=== PATIENT | male | born 1985 | race Caucasian/White ===

== ENCOUNTER 2023-03-11 22:15 | Inpatient (IN) | payer MEDICAID, OTHER ==
[~2023-03-11] VITALS: Ht 172.7 cm; Wt 122.9 kg
--- NOTE | 2023-03-11 22:15 | NUR ---
BROOKE Hu FROM BUS STATION FOR C/O SOB. REC'D ALBUTEROL ON THE WAY. PLACED IN BED, AAOX4, TACHYPNEIC RR- 32 SATURATING AT 90% WITH 15LIT O2 VIA NRM. AT BEDSIDE FOR EVAL.
[2023-03-11] MEDS ORDERED: IPRATROPIUM NEB FS 0.5 MG/2.5 ML AMPUL.NEB ONE (22:27)
[2023-03-11] MEDS ORDERED: ALBUTEROL FS 2.5 MG/3 ML VIAL.NEB ONE (22:27)
--- NOTE | 2023-03-11 22:29 | NUR ---
COVID SWAB DONE AND SENT TO LAB
--- NOTE | 2023-03-11 22:29 | NUR ---
IV YAMILE G20 INSERTED ON LEFT HAND. BLOOD DRAWN AND SENT TO LAB
[2023-03-11] MEDS ORDERED: IPRATROPIUM NEB FS 0.5 MG/2.5 ML AMPUL.NEB NEB ONE (22:30)
[2023-03-11] MEDS ORDERED: ALBUTEROL FS 2.5 MG/0.5 ML VIAL.NEB NEB ONE (22:30)
[2023-03-11] MEDS ORDERED: methylPREDNISolone SOD SUCC 125 MG/2ML VIAL IV ONE ×3 (22:30→23:30)
[2023-03-11] MEDS ORDERED: EPINEPHRINE (1:1000) MDV 30 MG/30ML VIAL SUBCUT ONE (22:30)
[2023-03-11] MEDS ORDERED: EPINEPHRINE (1:1000) 1 MG/ML AMPUL ONE (22:37)
[2023-03-11] MEDS ORDERED: methylPREDNISolone SOD SUCC 125 MG/2ML VIAL ONE (22:37)
[2023-03-11] MEDS ORDERED: IOHEXOL-350 100 ML VIAL IV ONE (22:41)
[2023-03-11] MEDS ORDERED: CT SWABBABLE VALVE TRANS SET 1 EA INFUS.SET MC ONE (22:42)
[2023-03-11] MEDS ORDERED: IV NS 0.9% 250 ML IV ONE (22:42)
[2023-03-11 23:24] LABS: BASOPHILS # (AUTO) 0.1 K/uL (0.0-0.2); BASOPHILS % (AUTO) 0.8 % (0.0-2.0); EOSINOPHILS % (AUTO) 2.3 % (0.0-6.0); HEMATOCRIT 37 % (39-51); HEMOGLOBIN 11.6 g/dL (13.5-17.5); LYMPHOCYTES # (AUTO) 1.7 K/uL (0.8-4.8); MEAN CORPUSCULAR HGB CONC 32 g/dl (31.0-36.0); MEAN CORPUSCULAR VOLUME 87 fL (80-96); MONOCYTES # (AUTO) 1.2 K/uL (0.1-1.30); MONOCYTES % (AUTO) 7.6 % (2.0-12.0); NEUTROPHILS % (AUTO) 78.3 % (43.0-81.0); PLATELET COUNT (AUTO) 325 K/uL (150-450); RED BLOOD CELL COUNT(AUTO) 4.21 MIL/uL (4.5-6.0); WHITE BLOOD COUNT (AUTO) 15.4 K/uL (4.3-11.0)
[2023-03-11] MEDS ORDERED: Magnesium 1GM/D5W 100ML PREMIX 200 ML IV ONE ×2 (23:24→23:30)
[2023-03-11 23:46] LABS: ALANINE AMINOTRANSFERASE 44 U/L (12-78); ALBUMIN 3.1 g/dL (3.4-5.0); ALKALINE PHOSPHATASE 181 U/L (46-116); ASPARTATE AMINOTRANSFERASE 67 U/L (15-37); BILIRUBIN,DIRECT 0.1 mg/dL (0.0-0.2); BILIRUBIN,TOTAL 0.3 mg/dL (0.2-1.0); CARBON DIOXIDE 20 mmol/L (21-32); CHLORIDE 104 mmol/L (98-107); CREATININE 6.1 mg/dL (0.6-1.3); GLUCOSE 156 mg/dL (74-106); POTASSIUM 4.3 mmol/L (3.5-5.1); SODIUM SERUM 139 mmol/L (136-145); TOTAL PROTEIN, SERUM 8.3 g/dL (6.4-8.2); UREA NITROGEN, BLOOD 77 mg/dL (7-18)
[2023-03-12] MEDS ORDERED: VANCOMYCIN 1 GM VIAL ONE (00:22)
[2023-03-12] MEDS ORDERED: PIPERACILLIN /TAZOBACTAM 3.375 G VIAL IV ONE (00:22)
[2023-03-12] MEDS ORDERED: PIPERACILLIN /TAZOBACTAM 3.375 G in IV D5W 50 ML IV ONE (00:30)
[2023-03-12] MEDS ORDERED: VANCOMYCIN 1 GM in IV D5W 250 ML IV ONE (00:30)
[2023-03-12] MEDS ORDERED: DEXTROSE 50%-WATER 50 ML DISP.SYRIN IV PRN (01:00)
[2023-03-12] MEDS ORDERED: MAG HYDROX/AL HYDROX/SIMETH 30 ML UDC PO PRN (01:00)
[2023-03-12] MEDS ORDERED: ONDANSETRON HCL/PF 4 MG/2 ML VIAL IVP PRN (01:00)
[2023-03-12] MEDS ORDERED: Z GUARD REMEDY 4 OZ OINT TP PRN (01:00)
[2023-03-12] MEDS ORDERED: MAGNESIUM HYDROXIDE 30 ML UDC PO PRN (01:00)
[2023-03-12] MEDS ORDERED: IV NS 0.9% 1,000 ML IV PRN (01:00)
[2023-03-12] MEDS ORDERED: ACETAMINOPHEN 325 MG TABLET PO PRN (01:00)
--- NOTE | 2023-03-12 02:01 | NUR ---
REPORT GIVEN TO [place] CRAWLEY FOR CONTINUATION OF CARE.
--- NOTE | 2023-03-12 02:15 | NUR ---
PT TO [facility]IA [facility] WITH RN AND EMT.
--- NOTE | 2023-03-12 02:40 | NUR ---
FLEET DISPATCH MANAGER NOTE RECEIVED PT FROM ER VIA ETHAN, PT IS A/O X 4, ABLE TO VERBALIZE NEEDS. SPEAKS URUGUAYAN PRIMARILY. PT IS BEING ADMITTED WITH THE DX OF RESPIRATORY FAILURE. CURRENTLY ON NRB MASK @ 15 LPM, TOLERATING WELL, SATING @ 98%. NO SOB AT THIS TIME. BREATHING IS EVEN AND UNLABORED. NO S/SX OF ACUTE RESPI DISTRESS. PT DENIES PAIN. MUNICIPAL SERVICES MANAGER READs SR WITH HR IN THE 90s. IV ACCESS NOTED ON HIS L HAND, 18g, SL. SKIN IS INTACT. ALL BELONGINGS ACCOUNTED FOR. SAFETY MEASURES IN PLACE: BED LOCKED IN LOW POSITION, SR UP X 2. HOB ELEVATED. CALL LIGHT WITHIN REACH. WILL CONTINUE TO MONITOR PT.
[2023-03-12 04:00] VITALS: BP 147/95
[2023-03-12] MEDS: methylPREDNISolone SOD SUCC 40 MG/ML VIAL IV SCH ×3 (04:05→20:24)
[2023-03-12] MEDS ORDERED: IPRATROPIUM NEB FS 0.5 MG/2.5 ML AMPUL.NEB NEB SCH (06:00)
[2023-03-12] MEDS ORDERED: ALBUTEROL FS 2.5 MG/3 ML VIAL.NEB NEB SCH (06:00)
--- NOTE | 2023-03-12 06:23 | NUR ---
[facility] RN CLOSING NOTE NO SIGNIFICANT CHANGES NOTED T/O THE NIGHT. PT ON NRB MASK @ 15 LPM, TOLERATING WELL, SATING BETWEEN 97-98%. DUE MEDS GIVEN. ALL NEEDS MET. WILL ENDORSE TO AM SHIFT NURSE FOR LUZ MARINA.
[2023-03-12 08:00] VITALS: BP 171/111
[2023-03-12] MEDS: ALBUTEROL FS 2.5 MG/3 ML VIAL.NEB NEB SCH ×6 (08:00→23:56)
[2023-03-12] MEDS: IPRATROPIUM NEB FS 0.5 MG/2.5 ML AMPUL.NEB NEB SCH ×6 (08:00→23:56)
--- NOTE | 2023-03-12 08:15 | NUR ---
WEED THINNER OPENING NOTE RECEIVED PATIENT ON BED REST, AWAKE AND ORIENTED X4. O2 VIA NRM AT 10L, 02 SAT 97%, NO S/S OF RESPIRATORY DISTRESS NOTED. HOB ELEVATED TO SEMI CENTENO POSITION. THE GEM EXPERT REMOVED THE NRM AT PRESENT AND HE PUT O2 N/C AT 6L, 02 SAT NOW IS 96% TO 95%, NO SOB NOTE. PATIENT ENC. TO COUGH AND DEEP BREATH. PATIENT ON TELE SR HR 88. PATIENT IS NPO FOR NOW UNTIL SWALLOW-EVAL. IS COMPLETED. ABLE TO MOVE IN BED WITHOUT DIFFICULTY. IV ACCESS AT LEFT HAND #18G. INFUSING IVF NS AT 75ML/HR. USING URINAL WITH CLEAR YELLOW URINE. SAFETY MEASURES IN PLACE: CALL LIGHT AND BED SIDE TABLE WITHIN REACH, BED LOCKED TO THE LOWEST POSITION. WILL CONTINUE TO MONITOR
--- NOTE | 2023-03-12 09:20 | NUR ---
[facility] RN NOTE CALLED TO DR MENDEZ NOTIFIED THAT BP IS 175/110 HR 98 WITH ORDER HYDREALAZINE 10MG IV PRN WILL F\U
--- NOTE | 2023-03-12 09:30 | NUR ---
[facility] RN NOTE SWALLOW EVAL AT BEDSIDE DONE BY NURSE PASSED , NO SOB NOTED WILL INFORM TO MD ,PATIENT ALERT AWAKE ORIENTED AND FOLLOW COMMAND
[2023-03-12] MEDS: PANTOPRAZOLE 40 MG VIAL IV SCH (09:43)
[2023-03-12] MEDS: PIPERACILLIN /TAZOBACTAM 3.375 G in IV D5W 50 ML IV SCH ×4 (09:43→23:07)
[2023-03-12] MEDS: hydrALAZINE HCL IV 20 MG VIAL IV PRN ×2 (09:45→13:01)
--- NOTE | 2023-03-12 10:12 | NUR ---
[facility] RN NOTE REPORTED TO DR MENDEZ THAT FROM HOME PATIENT TAKING LOSARTAN 50 MG PO DAILY NIFEDIPINE 60 XL BID ,COREG 25 MG BID AND OK TO START SOFT DIET, PATIENT AWAKE ALERT ORIENTED , US KIDNEY DOING NOW AT BEDSIDE
[2023-03-12] MEDS ORDERED: BUMETANIDE INJ 6 MG in IV D5W 36 ML IV ONE (10:30)
[2023-03-12] MEDS ORDERED: METF-440 PO (10:54)
[2023-03-12] MEDS ORDERED: LOSA50TA39 PO (10:54)
[2023-03-12] MEDS ORDERED: ASPI-1420 PO (10:54)
[2023-03-12] MEDS ORDERED: GLIM2TAB31 PO (10:54)
[2023-03-12] MEDS ORDERED: NIFE-34 PO (10:54)
[2023-03-12] MEDS ORDERED: CHOL100043 PO (10:54)
[2023-03-12] MEDS ORDERED: CARV25TA2 PO (10:54)
[2023-03-12] MEDS ORDERED: ATOR40TA PO (10:54)
--- NOTE | 2023-03-12 11:00 | NUR ---
[place] CRAWLEY NOTE STILL BO172/109 REYZAAR 50 MG PO GIVEN WILL F\U Addendum: 03/12/23 at 1211 by FEDERICA ALFARO RN BP 172/109
[2023-03-12] MEDS: HEPARIN SODIUM, PORCINE 5000 UNITS/1 ML VIAL SQ SCH ×2 (11:06→16:18)
[2023-03-12] MEDS: LOSARTAN POTASSIUM 50 MG TABLET PO SCH (11:11)
[2023-03-12] MEDS: BLOOD SUGAR DIAGNOSTIC 1 EACH STRIP VI SCH ×4 (11:30→21:21)
[2023-03-12] MEDS: INSULIN REGULAR, HUMAN 100 UNIT/ML 3 ML VIAL SQ PRN ×3 (11:32→21:22)
[2023-03-12 12:00] VITALS: BP 175/109
--- NOTE | 2023-03-12 12:53 | NUR ---
EMPLOYMENT ADJUDICATOR NOTE REPORTED TO DR VANESSA Valenzeula THAT BP 177/115 AND NEXT DOSE OF HYDRALAZINE AT 2 PM,ORDERED NEXT DOSE OF HYDRALAZINE GIVE NOW, WILL F\U
--- NOTE | 2023-03-12 14:26 | NUR ---
telephone plant power operator note called t dr da silva that bp after hydralazine is 170/107 hr 105 ordered clonidine 0.1 po q8 hour prn, order carried out
[2023-03-12] MEDS: CLONIDINE HCL 0.1 MG TABLET PO PRN ×3 (14:46→20:47)
--- NOTE | 2023-03-12 14:47 | NUR ---
telecom assistant note clonidine 0.1 mg po given as ordered bp170/107 will f\u
[2023-03-12 14:54] LABS: CREATININE, URINE 63.2 MG/DL (30.0-125.0)
[2023-03-12 14:57] LABS: BILIRUBIN,URINE NEGATIVE (NEGATIVE); LEUKOCYTE ESTERASE ,URINE NEGATIVE (NEGATIVE); NITRITE, URINE NEGATIVE (NEGATIVE); PH,URINE 5.5 (5.0-8.0); PROTEIN,URINE 3+ mg/dl (NEGATIVE); UGLUCOSE TRACE mg/dL (NEGATIVE); UROBILINOGEN,URINE 0.2 EU/dL (0.2)
--- NOTE | 2023-03-12 15:12 | NUR ---
telegraphic typewriter repairer note ua collected as ordered keep clean dry will chase
[2023-03-12 15:14] LABS: COLOR,URINE LIGHT YELLOW (YELLOW); RBC,URINE 0-2 /HPF (0-2)
[2023-03-12 15:15] LABS: BACTERIA,URINE Few /HPF (None Seen); SQUAMOUS EPITHELIAL CELL,UR Few /HPF (None Seen); URIC ACID CRYSTALS,URINE Moderate /HPF (None Seen); URINE AMORPHOUS URATE Moderate /HPF (None Seen); WBC,URINE NONE SEEN /HPF (0-3)
[2023-03-12 16:00] VITALS: BP_SYST 167; BP_SYST 170; BP_DIAS 101; BP_DIAS 107
[2023-03-12] MEDS: NIFEdipine XL (30MG) 30 MG TAB PO SCH (16:12)
[2023-03-12] MEDS: CARVEDILOL 12.5 MG TABLET PO SCH (16:56)
--- NOTE | 2023-03-12 17:45 | NUR ---
telemarketing agent note called to dr da silva notified that bp174/103 despite Coreg 25mg and Procardia 60mg po given stated ok to give clonidine 0.1 mg dose now and change Catapres 0.2 mg prn will f\u
--- NOTE | 2023-03-12 17:47 | NUR ---
EXTERIOR DOOR INSTALLER NOTE CLONIDINE 0.1 MG PO GIVEN ORDERED BY DR MENDEZ BP174/103 WILL F\U
--- NOTE | 2023-03-12 18:21 | NUR ---
TELE EMBEDDED LINUX DEVELOPER CLOSING NOTE PATIENT SITTING IN BED, A/OX4, O2 N/C 4L O2 SAT 97% NO S/S OF RESPIRATORY DISTRESS NOTED. PATIENT ATE 100% OF DINNER. VOIDING LARGE AMOUNT CLEAR YELLOW URINE. IV ACCESS ON RIGHT HAND #20G SL NO S/S OF INFILTRATION NOTED. IV ACCESS TO LEFT HAND #18G WITHOUT S/S OF INFILTRATION NOTED. SAFETY MEASURES IN PLACE: CALL LIGHT, TABLE, URINAL WITHIN REACH. SIDE RAILS UP X2, BED LOCKED TO THE LOWEST POSITION. WILL ENDORSE TO THE NEXT SHIFT. Addendum: 03/12/23 at 1859 by FEDERICA ALFARO RN ON 4L NC ,SATURATION IS 96% NO SOB NOTED
--- NOTE | 2023-03-12 19:30 | NUR ---
[facility] RN OPENING NOTE RECEIVED PT IN BED, AWAKE, A/O X 4, ABLE TO VERBALIZE NEEDS. SPEAKS GEORGIAN PRIMARILY. CURRENTLY ON NC @ 4 LPM, TOLERATING WELL, SATING @ >95%. NO S/SX OF ACUTE RESPI DISTRESS NOTED AT THIS TIME. NO SOB. BREATHING IS EVEN AND UNLABORED. SUPERVISOR KENNEL READS SR WITH HR IN THE 90s. IV ACCESS NOTED ON HIS L HAND, 18g, AND R HAND, # 20g, BOTH PATENT, INTACT AND SL. ALL SAFETY MEASURES IN PLACE: BED LOCKED IN LOW POSITION, SR UP X 2. HOB ELEVATED. CALL LIGHT WITHIN REACH. WILL CONTINUE TO MONITOR PT.
[2023-03-12 20:00] VITALS: BP 166/110
[2023-03-13] VITALS: BP 164/116
[2023-03-13] MEDS: IPRATROPIUM NEB FS 0.5 MG/2.5 ML AMPUL.NEB NEB SCH ×6 (03:27→23:34)
[2023-03-13] MEDS: ALBUTEROL FS 2.5 MG/3 ML VIAL.NEB NEB SCH ×6 (03:27→23:34)
[2023-03-13 04:00] VITALS: BP 153/101
[2023-03-13] MEDS: methylPREDNISolone SOD SUCC 40 MG/ML VIAL IV SCH ×3 (04:33→21:19)
[2023-03-13] MEDS: PIPERACILLIN /TAZOBACTAM 3.375 G in IV D5W 50 ML IV SCH ×4 (05:03→23:23)
[2023-03-13 06:49] LABS: HEMATOCRIT 32 % (39-51); HEMOGLOBIN 10.5 g/dL (13.5-17.5); LYMPHOCYTES # (AUTO) 0.6 K/uL (0.8-4.8); MEAN CORPUSCULAR HGB CONC 33 g/dl (31.0-36.0); MEAN CORPUSCULAR VOLUME 87 fL (80-96); MONOCYTES # (AUTO) 0.6 K/uL (0.1-1.30); MONOCYTES % (AUTO) 3.7 % (2.0-12.0); NEUTROPHILS # (AUTO) 14.1 K/uL (1.8-8.9); NEUTROPHILS % (AUTO) 92.3 % (43.0-81.0); PLATELET COUNT (AUTO) 261 K/uL (150-450); RED BLOOD CELL COUNT(AUTO) 3.71 MIL/uL (4.5-6.0); WHITE BLOOD COUNT (AUTO) 15.3 K/uL (4.3-11.0)
--- NOTE | 2023-03-13 07:05 | NUR ---
RN CLOSING NOTE NO SIGNIFICANT CHANGE T/O THE NIGHT. ALL DUE MEDS GIVEN. NEEDS MET. WILL ENDORSE TO AM SHIFT NURSE FOR LUZ MARINA.
[2023-03-13] MEDS: BLOOD SUGAR DIAGNOSTIC 1 EACH STRIP VI SCH ×4 (07:09→21:41)
[2023-03-13 07:14] LABS: CALCIUM, SERUM 8.5 mg/dL (8.5-10.1); CREATININE 4.9 mg/dL (0.6-1.3); MAGNESIUM 2.3 mg/dL (1.8-2.4); PHOSPHORUS 6.4 mg/dL (2.5-4.9); POTASSIUM 4.3 mmol/L (3.5-5.1)
--- NOTE | 2023-03-13 07:15 | NUR ---
[facility] RN OPENING NOTE RECEIVED PT IN BED, AWAKE, A/O X 4, ABLE TO VERBALIZE NEEDS. SPEAKS MAURITIAN PRIMARILY. CURRENTLY ON NC @ 4 LPM, TOLERATING WELL, SATING @ >95%. NO S/SX OF ACUTE RESPI DISTRESS NOTED AT THIS TIME. NO SOB. BREATHING IS EVEN AND UNLABORED. PILOT PLANT OPERATOR READS SR WITH HR IN THE 90s. IV ACCESS NOTED ON HIS L HAND, 18g, AND R HAND, # 20g, BOTH PATENT, INTACT AND SL. ALL SAFETY MEASURES IN PLACE: BED LOCKED IN LOW POSITION, SR UP X 2. HOB ELEVATED. CALL LIGHT WITHIN REACH. WILL CONTINUE TO MONITOR PT.
[2023-03-13] MEDS: INSULIN REGULAR, HUMAN 100 UNIT/ML 3 ML VIAL SQ PRN ×3 (07:20→16:51)
[2023-03-13 08:00] VITALS: BP 151/103
[2023-03-13] MEDS ORDERED: LOSARTAN POTASSIUM 50 MG TABLET PO SCH (09:00)
[2023-03-13] MEDS: CARVEDILOL 12.5 MG TABLET PO SCH ×2 (09:09→16:41)
[2023-03-13] MEDS: LOSARTAN POTASSIUM 50 MG TABLET PO SCH (09:09)
[2023-03-13] MEDS: BUMETANIDE INJ 0.25 MG/ML VIAL IV SCH (09:10)
[2023-03-13] MEDS: PANTOPRAZOLE 40 MG VIAL IV SCH (09:10)
[2023-03-13] MEDS: NIFEdipine XL (30MG) 30 MG TAB PO SCH ×2 (09:10→16:41)
[2023-03-13] MEDS: HEPARIN SODIUM, PORCINE 5000 UNITS/1 ML VIAL SQ SCH ×2 (09:11→16:42)
[2023-03-13 12:00] VITALS: BP 157/95
[2023-03-13] MEDS ORDERED: VANCOMYCIN 1 GM in IV D5W 250 ML IV SCH (13:00)
[2023-03-13] MEDS ORDERED: BUMETANIDE INJ 4 MG in IV D5W 24 ML IV ONE (13:30)
[2023-03-13 16:13] VITALS: BP 153/106
--- NOTE | 2023-03-13 18:26 | NUR ---
RN CLOSING NOTE PT IN BED, AWAKE, A/O X 4, ABLE TO VERBALIZE NEEDS. SPEAKS MAURITIAN PRIMARILY. CURRENTLY ON ROOM AIR SATURATION 94% TOLERATING WELL. NO S/SX OF ACUTE RESPI DISTRESS NOTED AT THIS TIME. NO SOB. BREATHING IS EVEN AND UNLABORED. MARITIME GUARD READS SR WITH HR IN THE 90s. IV ACCESS NOTED ON HIS L HAND, 18g, AND R HAND, # 20g, BOTH PATENT, INTACT AND SL. ALL SAFETY MEASURES IN PLACE: BED LOCKED IN LOW POSITION, SR UP X 2. HOB ELEVATED. CALL LIGHT WITHIN REACH. WILL ENDORSE RAGS LABORER NURSE TO FALLOW POC
--- NOTE | 2023-03-13 19:30 | NUR ---
BAND SAW MARKER OPENING NOTE RECEIVED PT IN BED, AWAKE, A/O X 4, ABLE TO VERBALIZE NEEDS. SPEAKS TRISTANIAN PRIMARILY. CURRENTLY ON RA, TOLERATING WELL, SATING @ >95%. NO S/SX OF ACUTE RESPI DISTRESS NOTED AT THIS TIME. NO SOB. BREATHING IS EVEN AND UNLABORED. SINK CUTTER READS SR WITH HR IN THE 80s. IV ACCESS NOTED ON HIS L HAND, 18g, AND R HAND, # 20g, BOTH PATENT, INTACT AND SL. ALL SAFETY MEASURES IN PLACE: BED LOCKED IN LOW POSITION, SR UP X 2. HOB ELEVATED. CALL LIGHT WITHIN REACH. WILL CONTINUE TO MONITOR PT.
[2023-03-13 20:00] VITALS: BP 186/107
[2023-03-13] MEDS: CLONIDINE HCL 0.1 MG TABLET PO PRN (20:17)
[2023-03-13] MEDS: *INSULIN REGULAR(HUMULIN R)HUM 100 UNIT/ML VIAL SQ PRN (21:43)
[2023-03-14] VITALS: BP 163/109
[2023-03-14] MEDS ORDERED: VANCOMYCIN 1 GM in IV D5W 250 ML IV SCH (01:00)
[2023-03-14] MEDS: ALBUTEROL FS 2.5 MG/3 ML VIAL.NEB NEB SCH ×3 (03:30→11:22)
[2023-03-14] MEDS: IPRATROPIUM NEB FS 0.5 MG/2.5 ML AMPUL.NEB NEB SCH ×3 (03:30→11:22)
[2023-03-14 04:00] VITALS: BP 164/100
[2023-03-14] MEDS: PIPERACILLIN /TAZOBACTAM 3.375 G in IV D5W 50 ML IV SCH ×2 (04:20→05:03)
[2023-03-14] MEDS: methylPREDNISolone SOD SUCC 40 MG/ML VIAL IV SCH (04:24)
[2023-03-14] MEDS: hydrALAZINE HCL IV 20 MG VIAL IV PRN ×2 (04:28→11:37)
--- NOTE | 2023-03-14 06:16 | NUR ---
VEGETABLE CUTTER CLOSING NOTE NO SIGNIFICANT CHANGE T/O THE NIGHT. PT'S SBP STILL >160. PT RECEIVED CLONIDINE AND HYDRALAZINE PRN ORDERED. ALL DUE MEDS GIVEN. NEEDS MET. WILL ENDORSE TO AM SHIFT NURSE FOR LUZ MARINA.
[2023-03-14 07:01] LABS: HEMATOCRIT 36 % (39-51); HEMOGLOBIN 11.5 g/dL (13.5-17.5); LYMPHOCYTES # (AUTO) 0.5 K/uL (0.8-4.8); LYMPHOCYTES % (AUTO) 3.2 % (20.0-44.0); MEAN CORPUSCULAR HGB CONC 32 g/dl (31.0-36.0); MEAN CORPUSCULAR VOLUME 89 fL (80-96); MONOCYTES # (AUTO) 0.3 K/uL (0.1-1.30); NEUTROPHILS # (AUTO) 15.2 K/uL (1.8-8.9); NEUTROPHILS % (AUTO) 94.8 % (43.0-81.0); PLATELET COUNT (AUTO) 268 K/uL (150-450); RED BLOOD CELL COUNT(AUTO) 4.01 MIL/uL (4.5-6.0)
[2023-03-14 07:15] LABS: CALCIUM, SERUM 8.6 mg/dL (8.5-10.1); MAGNESIUM 2.5 mg/dL (1.8-2.4); PHOSPHORUS 5.8 mg/dL (2.5-4.9); POTASSIUM 4.3 mmol/L (3.5-5.1)
[2023-03-14] MEDS: BLOOD SUGAR DIAGNOSTIC 1 EACH STRIP VI SCH ×2 (07:26→11:31)
[2023-03-14] MEDS ORDERED: PANTOPRAZOLE 40 MG TABLET.DR PO SCH (07:30)
[2023-03-14] MEDS: *INSULIN REGULAR(HUMULIN R)HUM 100 UNIT/ML VIAL SQ PRN (07:46)
--- NOTE | 2023-03-14 07:57 | NUR ---
QUALITY LEAD OPENING NOTE RECEIVED PT IN BED, AWAKE, A/O X 4, ABLE TO VERBALIZE NEEDS. SPEAKS DJIBOUTIAN PRIMARILY. CURRENTLY ON RA, TOLERATING WELL, SATING @ >95%. NO COMPLAINTS OF PAIN OR DISCOMFORT NOTED AT THIS TIME. BREATHING IS EVEN AND UNLABORED.PT ON TELE MONTIOR. IV ACCESS NOTED ON HIS L HAND, 18g, AND R HAND, # 20g, BOTH PATENT, INTACT AND SL. ALL SAFETY MEASURES IN PLACE: BED LOCKED IN LOW POSITION, SR UP X 2. HOB ELEVATED. CALL LIGHT WITHIN REACH. BED ALARM ON
[2023-03-14 08:00] VITALS: BP 151/104
[2023-03-14] MEDS: BUMETANIDE INJ 0.25 MG/ML VIAL IV SCH (08:15)
[2023-03-14] MEDS: NIFEdipine XL (30MG) 30 MG TAB PO SCH (08:15)
[2023-03-14] MEDS: LOSARTAN POTASSIUM 50 MG TABLET PO SCH (08:15)
[2023-03-14] MEDS: CARVEDILOL 12.5 MG TABLET PO SCH (08:16)
[2023-03-14] MEDS: HEPARIN SODIUM, PORCINE 5000 UNITS/1 ML VIAL SQ SCH (08:19)
[2023-03-14] MEDS ORDERED: NIFEdipine XL (30MG) 30 MG TAB PO SCH (09:00)
--- NOTE | 2023-03-14 11:13 | NUR ---
RN NOTE GAVE 2 TABLET PROCARDIA 60 MG SCHEDULED. DISCONTINUED IT AND PUT IN NEW ORDER F0R 90 MG 3 TABLETS BID. NOTIFIED PHARMACY.PICKED UP 1 PROCARDIA 30 MG TABLET FROM PHARMACY AND ADMINSTERED. ADMINSTERED TOTAL OF 90 MG PER MD ORDER
[2023-03-14] MEDS: INSULIN REGULAR, HUMAN 100 UNIT/ML 3 ML VIAL SQ PRN (11:52)
[2023-03-14 12:00] VITALS: BP 157/102
[2023-03-14] MEDS ORDERED: ZOSYN IVPB 2.25 G in IV D5W 50ml IV SCH (12:00)
[2023-03-14] MEDS ORDERED: methylPREDNISolone SOD SUCC 40 MG/ML VIAL IV SCH (12:00)
--- NOTE | 2023-03-14 14:51 | NUR ---
RN AMA DISCHARGE NOTE PT LEFT IN STABLE CONDITION. PT ALERT AND ORIENTED X 4. PROVIDED EDUCATION ON BENEFITS OF STAYING. PT REFUSED AND INSISTENT ON GOING HOME. REMOVED 2 IV AND TELE MONTIOR. PT SAID HE WOULD CONTROL HIS BLOOD PRESSURE AT HOME. EDUCATED ON BENEFITS OF TAKING BP MEDICATIONS PRESCRIBED. PT VERBALIZED UNDERSTANDING OF RISK AND AGREED.EDUCATED IN CASE OF EMERGENCY TO GO TO NEAREST EMERGENECY. PT VERBALIZED UNDERSTANDING. ALL BELONGINGS WITH PT. AWARE, SERVICER TRAVEL TRAILERS AWARE.ESCORTED OUT BY NURSING STAFF.
== END 2023-03-14 14:50 | disposition left against medical advice (07) | DRG 720 ==
LOC: ER 22:17 → TELE1 03-12 01:16 → TELE-TD 03-12 02:11 → TELE1 03-12 11:38
PROVIDERS: ADMIT Student in an Organized Health Care Education/Training Program; ATTEND Student in an Organized Health Care Education/Training Program
DX: A41.9 Sepsis, unspecified organism (principal); J96.01 Acute respiratory failure with hypoxia; N17.0 Acute kidney failure with tubular necrosis; I50.31 Acute diastolic (congestive) heart failure; E11.22 Type 2 diabetes mellitus with diabetic chronic kidney disease; E44.1 Mild protein-calorie malnutrition; J18.9 Pneumonia, unspecified organism; I13.0 Hypertensive heart and chronic kidney disease with heart failure and stage 1 through stage 4 chronic kidney disease, or unspecified chronic kidney disease; D64.9 Anemia, unspecified; I50.33 Acute on chronic diastolic (congestive) heart failure; E11.9 Type 2 diabetes mellitus without complications; E78.5 Hyperlipidemia, unspecified; N18.9 Chronic kidney disease, unspecified; Z79.899 Other long term (current) drug therapy; Z20.822 Contact with and (suspected) exposure to COVID-19; Z53.29 Procedure and treatment not carried out because of patient's decision for other reasons
CPT/HCPCS: 36415; 71045-TC; 76770-TC; 80048-TC; 80076-TC; 81001; 82570-TC; 82962-TC; 83605-TC; 83735-TC; 83880; 84100-TC; 84300-TC; 84484-TC; 85025-TC; 85730-TC; 87040-TC; 87081-TC; 92526; 92611-TC; 93307-TC; 94762-TC; 94799-TC; A4223; C9113; C9803; G0378; J0171; J0360; J1644; J1815; J2543; J2920; J2930; J3370; J3475; J3490; J7030; J7050; J7060; Q9967

== ENCOUNTER 2023-10-28 10:54 | Inpatient (IN) | payer MEDICAID ==
[~2023-10-28] VITALS: Ht 170.2 cm; Wt 92.5 kg
[~2023-10-28 10:54] MED LIST: ASPI-1169 NG; ASPI-1420 PO; ATOR40TA PO; CARV25TA2 PO; CHOL100043 PO; GLIM2TAB31 PO; HYDR-4076 GT; LABE100T15 PO; LIDO30AD10 TP; LOSA50TA39 PO; METF-440 PO; NIFE-34 PO
[2023-10-28 12:05] LABS: BASOPHILS # (AUTO) 0.1 K/uL (0.0-0.2); BASOPHILS % (AUTO) 0.8 % (0.0-2.0); EOSINOPHILS # (AUTO) 0.3 K/uL (0.0-0.7); EOSINOPHILS % (AUTO) 3.7 % (0.0-6.0); HEMATOCRIT 42 % (39-51); HEMOGLOBIN 14.2 g/dL (13.5-17.5); LYMPHOCYTES # (AUTO) 1.1 K/uL (0.8-4.8); LYMPHOCYTES % (AUTO) 14.7 % (20.0-44.0); MEAN CORPUSCULAR HEMOGLOBIN 31 PG (26.0-33.0); MEAN CORPUSCULAR HGB CONC 34 g/dl (31.0-36.0); MEAN CORPUSCULAR VOLUME 93 fL (80-96); MONOCYTES # (AUTO) 0.5 K/uL (0.1-1.30); MONOCYTES % (AUTO) 6.9 % (2.0-12.0); NEUTROPHILS # (AUTO) 5.8 K/uL (1.8-8.9); NEUTROPHILS % (AUTO) 73.9 % (43.0-81.0); PLATELET COUNT (AUTO) 349 K/uL (150-450); RED CELL DISTRIBUTION WIDTH 15.5 % (11.5-15.0); WHITE BLOOD COUNT (AUTO) 7.8 K/uL (4.3-11.0)
[2023-10-28 12:15] LABS: CALCIUM, SERUM 9.9 mg/dL (8.5-10.1); POTASSIUM 4.3 mmol/L (3.5-5.1)
[2023-10-28 12:16] LABS: CREATININE 11.6 mg/dL (0.6-1.3)
[2023-10-28 12:30] LABS: INR 1.03 (0.91-1.10); PROTHROMBIN TIME 10.9 SECS (9.2-11.1)
[2023-10-28] MEDS ORDERED: Z GUARD REMEDY 4 OZ OINT TP PRN (13:00)
[2023-10-28] MEDS ORDERED: MAG HYDROX/AL HYDROX/SIMETH 30 ML UDC PO PRN (13:00)
[2023-10-28] MEDS ORDERED: ONDANSETRON HCL/PF 4 MG/2 ML VIAL IVP PRN (13:00)
[2023-10-28] MEDS ORDERED: ZOLPIDEM TARTRATE 5 MG TABLET PO PRN (13:00)
[2023-10-28] MEDS ORDERED: MAGNESIUM HYDROXIDE 30 ML UDC PO PRN (13:00)
[2023-10-28] MEDS ORDERED: ACETAMINOPHEN 325 MG TABLET PO PRN (13:00)
[2023-10-28] MEDS ORDERED: DEXTROSE 50%-WATER 50 ML DISP.SYRIN IV PRN (13:00)
[2023-10-28 14:35] VITALS: BP 147/111; TEMP 98.1
[2023-10-28 16:00] VITALS: BP 155/111; TEMP 98; O2SAT 100
[2023-10-28] MEDS: NIFEDIPINE XL 60 MG TAB.ER.24 PO SCH (17:37)
[2023-10-28] MEDS: CARVEDILOL 12.5 MG TABLET PO SCH (17:37)
[2023-10-28] MEDS: ATORVASTATIN 40 MG TABLET PO SCH (17:38)
[2023-10-28] MEDS: BLOOD SUGAR DIAGNOSTIC 1 EACH STRIP IN SCH ×2 (17:39→22:07)
[2023-10-28] MEDS: LOSARTAN POTASSIUM 50 MG TABLET PO SCH (17:39)
[2023-10-28 20:00] VITALS: BP 154/116; TEMP 98; O2SAT 100
[2023-10-29] VITALS (9 sets, daily range): BP systolic 108–129; BP diastolic 72–88; TEMP 97.2–98.4; O2SAT 96–100
[2023-10-29 03:56] LABS: CALCIUM, SERUM 9.5 mg/dL (8.5-10.1); POTASSIUM 4.1 mmol/L (3.5-5.1)
[2023-10-29] MEDS: BLOOD SUGAR DIAGNOSTIC 1 EACH STRIP IN SCH ×4 (06:21→22:00)
[2023-10-29 06:22] LABS: BASOPHILS # (AUTO) 0.1 K/uL (0.0-0.2); BASOPHILS % (AUTO) 0.8 % (0.0-2.0); EOSINOPHILS # (AUTO) 0.4 K/uL (0.0-0.7); HEMATOCRIT 37 % (39-51); HEMOGLOBIN 12.7 g/dL (13.5-17.5); LYMPHOCYTES # (AUTO) 1.8 K/uL (0.8-4.8); LYMPHOCYTES % (AUTO) 19.5 % (20.0-44.0); MEAN CORPUSCULAR HEMOGLOBIN 32 PG (26.0-33.0); MEAN CORPUSCULAR HGB CONC 34 g/dl (31.0-36.0); MEAN CORPUSCULAR VOLUME 93 fL (80-96); MONOCYTES # (AUTO) 0.9 K/uL (0.1-1.30); MONOCYTES % (AUTO) 9.5 % (2.0-12.0); NEUTROPHILS # (AUTO) 6.2 K/uL (1.8-8.9); NEUTROPHILS % (AUTO) 66.2 % (43.0-81.0); PLATELET COUNT (AUTO) 321 K/uL (150-450); RED BLOOD CELL COUNT(AUTO) 3.99 MIL/uL (4.5-6.0); RED CELL DISTRIBUTION WIDTH 15.4 % (11.5-15.0); WHITE BLOOD COUNT (AUTO) 9.3 K/uL (4.3-11.0)
[2023-10-29] MEDS ORDERED: ACETAMINOPHEN ES 500 MG TABLET PO ONE (06:30)
[2023-10-29 06:47] LABS: CALCIUM, SERUM 9.5 mg/dL (8.5-10.1); MAGNESIUM 2.2 mg/dL (1.8-2.4); POTASSIUM 4.7 mmol/L (3.5-5.1)
[2023-10-29] MEDS ORDERED: LIDOCAINE HCL/MPF 1% 30 ML VIAL IJ ONE (06:50)
[2023-10-29] MEDS ORDERED: IOHEXOL 0 ML IV ONE (06:50)
[2023-10-29] MEDS ORDERED: HEPARIN SODIUM, PORCINE 1,000 UNIT/ML VIAL ONE (06:51)
[2023-10-29 06:56] LABS: CREATININE 15.9 mg/dL (0.6-1.3); PHOSPHORUS 9.9 mg/dL (2.5-4.9)
[2023-10-29] MEDS ORDERED: FENTANYL PF 100MCG/2ML AMPUL ONE (07:22)
[2023-10-29] MEDS ORDERED: MIDAZOLAM HCL 2 MG/2ML VIAL ONE (07:22)
[2023-10-29] MEDS ORDERED: BACITRACIN ZINC OINT PACKET 1 EA PACKET TP ONE (07:44)
[2023-10-29] MEDS ORDERED: PANTOPRAZOLE 40 MG VIAL IV SCH (09:00)
[2023-10-29] MEDS: CHOLECALCIFEROL 1,000 UNIT TABLET (VIT D3) PO SCH (09:46)
[2023-10-29] MEDS: CARVEDILOL 12.5 MG TABLET PO SCH ×2 (09:47→17:00)
[2023-10-29] MEDS: LOSARTAN POTASSIUM 50 MG TABLET PO SCH ×2 (09:47→17:00)
[2023-10-29] MEDS: NIFEDIPINE XL 60 MG TAB.ER.24 PO SCH ×2 (09:47→17:00)
[2023-10-29] MEDS ORDERED: ANCEF 1 GM/50 ML D5W IV SCH ×2 (16:00)
[2023-10-29] MEDS: ATORVASTATIN 40 MG TABLET PO SCH (17:12)
[2023-10-29] MEDS: INSULIN REGULAR, HUMAN 100 UNIT/ML 3 ML VIAL SQ PRN (18:04)
[2023-10-30 05:51] LABS: BASOPHILS # (AUTO) 0.1 K/uL (0.0-0.2); BASOPHILS % (AUTO) 0.8 % (0.0-2.0); EOSINOPHILS # (AUTO) 0.5 K/uL (0.0-0.7); HEMATOCRIT 36 % (39-51); HEMOGLOBIN 12.2 g/dL (13.5-17.5); LYMPHOCYTES # (AUTO) 1.6 K/uL (0.8-4.8); LYMPHOCYTES % (AUTO) 18.8 % (20.0-44.0); MEAN CORPUSCULAR HEMOGLOBIN 32 PG (26.0-33.0); MEAN CORPUSCULAR HGB CONC 34 g/dl (31.0-36.0); MEAN CORPUSCULAR VOLUME 94 fL (80-96); MONOCYTES % (AUTO) 11.4 % (2.0-12.0); NEUTROPHILS # (AUTO) 5.2 K/uL (1.8-8.9); PLATELET COUNT (AUTO) 267 K/uL (150-450); RED BLOOD CELL COUNT(AUTO) 3.86 MIL/uL (4.5-6.0); WHITE BLOOD COUNT (AUTO) 8.3 K/uL (4.3-11.0)
[2023-10-30 06:25] LABS: CALCIUM, SERUM 10.1 mg/dL (8.5-10.1); MAGNESIUM 2.5 mg/dL (1.8-2.4); POTASSIUM 4.7 mmol/L (3.5-5.1)
[2023-10-30 06:36] LABS: CREATININE 14.5 mg/dL (0.6-1.3); PHOSPHORUS 9.9 mg/dL (2.5-4.9)
[2023-10-30] MEDS: BLOOD SUGAR DIAGNOSTIC 1 EACH STRIP IN SCH ×4 (06:58→21:38)
[2023-10-30 07:30] VITALS: BP 140/103; TEMP 98.4; O2SAT 97
[2023-10-30] MEDS: NIFEDIPINE XL 60 MG TAB.ER.24 PO SCH ×2 (08:20→16:38)
[2023-10-30] MEDS: CHOLECALCIFEROL 1,000 UNIT TABLET (VIT D3) PO SCH (08:20)
[2023-10-30] MEDS: LOSARTAN POTASSIUM 50 MG TABLET PO SCH ×2 (08:20→16:37)
[2023-10-30] MEDS: CARVEDILOL 12.5 MG TABLET PO SCH ×2 (08:21→16:37)
[2023-10-30] MEDS: PANTOPRAZOLE 40 MG TABLET.DR PO SCH (08:29)
[2023-10-30] MEDS: INSULIN REGULAR, HUMAN 100 UNIT/ML 3 ML VIAL SQ PRN ×2 (12:07→16:48)
[2023-10-30 16:00] VITALS: BP 114/80; TEMP 98.4; O2SAT 98
[2023-10-30 17:09] LABS: CALCIUM, SERUM 9.8 mg/dL (8.5-10.1); PHOSPHORUS 6.4 mg/dL (2.5-4.9); POTASSIUM 4.5 mmol/L (3.5-5.1)
[2023-10-30 17:13] LABS: CREATININE 11.4 mg/dL (0.6-1.3)
[2023-10-30] MEDS: ATORVASTATIN 40 MG TABLET PO SCH (17:51)
[2023-10-30 20:00] VITALS: BP 110/87; TEMP 98.1; O2SAT 97
[2023-10-31] MEDS: BLOOD SUGAR DIAGNOSTIC 1 EACH STRIP IN SCH ×4 (05:49→22:48)
[2023-10-31 06:20] LABS: BASOPHILS % (AUTO) 0.5 % (0.0-2.0); EOSINOPHILS # (AUTO) 0.5 K/uL (0.0-0.7); EOSINOPHILS % (AUTO) 5.9 % (0.0-6.0); HEMATOCRIT 36 % (39-51); HEMOGLOBIN 12.4 g/dL (13.5-17.5); LYMPHOCYTES # (AUTO) 1.5 K/uL (0.8-4.8); LYMPHOCYTES % (AUTO) 16.3 % (20.0-44.0); MEAN CORPUSCULAR HEMOGLOBIN 32 PG (26.0-33.0); MEAN CORPUSCULAR HGB CONC 34 g/dl (31.0-36.0); MEAN CORPUSCULAR VOLUME 94 fL (80-96); MONOCYTES % (AUTO) 11.1 % (2.0-12.0); NEUTROPHILS # (AUTO) 5.9 K/uL (1.8-8.9); NEUTROPHILS % (AUTO) 66.2 % (43.0-81.0); PLATELET COUNT (AUTO) 240 K/uL (150-450); RED BLOOD CELL COUNT(AUTO) 3.89 MIL/uL (4.5-6.0); RED CELL DISTRIBUTION WIDTH 15.5 % (11.5-15.0)
[2023-10-31 07:11] LABS: CALCIUM, SERUM 10.2 mg/dL (8.5-10.1); MAGNESIUM 2.6 mg/dL (1.8-2.4); POTASSIUM 4.9 mmol/L (3.5-5.1)
[2023-10-31 07:12] LABS: PHOSPHORUS 9.7 mg/dL (2.5-4.9)
[2023-10-31] MEDS: CARVEDILOL 12.5 MG TABLET PO SCH ×2 (08:08→16:45)
[2023-10-31] MEDS: LOSARTAN POTASSIUM 50 MG TABLET PO SCH ×2 (08:09→16:45)
[2023-10-31] MEDS: CHOLECALCIFEROL 1,000 UNIT TABLET (VIT D3) PO SCH (08:09)
[2023-10-31] MEDS: NIFEDIPINE XL 60 MG TAB.ER.24 PO SCH ×3 (08:09→16:46)
[2023-10-31] MEDS: PANTOPRAZOLE 40 MG TABLET.DR PO SCH (08:09)
[2023-10-31 08:21] VITALS: BP 135/110; TEMP 98.2; O2SAT 100
[2023-10-31] MEDS: INSULIN REGULAR, HUMAN 100 UNIT/ML 3 ML VIAL SQ PRN ×3 (11:09→22:48)
[2023-10-31] MEDS: SEVELAMER CARBONATE 800 MG TABLET PO SCH ×2 (12:08→17:27)
[2023-10-31] MEDS ORDERED: ALTEPLASE CATHFLO 2 MG/VIAL XX ONE ×2 (14:30→17:30)
[2023-10-31 16:05] VITALS: BP 118/106; TEMP 98.1; O2SAT 98
[2023-10-31] MEDS ORDERED: ALTEPLASE CATHFLO 2 MG/VIAL ONE (17:03)
[2023-10-31] MEDS: ATORVASTATIN 40 MG TABLET PO SCH (17:27)
[2023-10-31 20:27] VITALS: BP 130/91; TEMP 97.9; O2SAT 99
[2023-11-01 05:40] LABS: BASOPHILS # (AUTO) 0.1 K/uL (0.0-0.2); BASOPHILS % (AUTO) 0.9 % (0.0-2.0); EOSINOPHILS # (AUTO) 0.5 K/uL (0.0-0.7); HEMATOCRIT 33 % (39-51); HEMOGLOBIN 11.2 g/dL (13.5-17.5); LYMPHOCYTES # (AUTO) 1.2 K/uL (0.8-4.8); LYMPHOCYTES % (AUTO) 16.3 % (20.0-44.0); MEAN CORPUSCULAR HEMOGLOBIN 32 PG (26.0-33.0); MEAN CORPUSCULAR HGB CONC 34 g/dl (31.0-36.0); MEAN CORPUSCULAR VOLUME 95 fL (80-96); MONOCYTES # (AUTO) 0.9 K/uL (0.1-1.30); MONOCYTES % (AUTO) 12.2 % (2.0-12.0); NEUTROPHILS # (AUTO) 4.9 K/uL (1.8-8.9); NEUTROPHILS % (AUTO) 64.6 % (43.0-81.0); PLATELET COUNT (AUTO) 189 K/uL (150-450); RED BLOOD CELL COUNT(AUTO) 3.51 MIL/uL (4.5-6.0); RED CELL DISTRIBUTION WIDTH 15.8 % (11.5-15.0); WHITE BLOOD COUNT (AUTO) 7.6 K/uL (4.3-11.0)
[2023-11-01 06:03] LABS: ALBUMIN 3.6 g/dL (3.4-5.0); ALKALINE PHOSPHATASE 88 U/L (46-116); ASPARTATE AMINOTRANSFERASE 6 U/L (15-37); BILIRUBIN,TOTAL 0.3 mg/dL (0.2-1.0); CALCIUM, SERUM 9.3 mg/dL (8.5-10.1); CARBON DIOXIDE 19 mmol/L (21-32); CHLORIDE 96 mmol/L (98-107); GLUCOSE 94 mg/dL (74-106); MAGNESIUM 2.4 mg/dL (1.8-2.4); POTASSIUM 4.5 mmol/L (3.5-5.1); SODIUM SERUM 129 mmol/L (136-145); UREA NITROGEN, BLOOD 60 mg/dL (7-18)
[2023-11-01 06:17] LABS: ALANINE AMINOTRANSFERASE < 6 U/L (12-78)
[2023-11-01 06:33] LABS: CREATININE 12.8 mg/dL (0.6-1.3); PHOSPHORUS 8.1 mg/dL (2.5-4.9)
[2023-11-01] MEDS: INSULIN REGULAR, HUMAN 100 UNIT/ML 3 ML VIAL SQ PRN ×4 (06:35→21:25)
[2023-11-01] MEDS: BLOOD SUGAR DIAGNOSTIC 1 EACH STRIP IN SCH ×4 (06:35→21:25)
[2023-11-01] MEDS: SEVELAMER CARBONATE 800 MG TABLET PO SCH ×4 (08:00→17:04)
[2023-11-01 08:29] VITALS: BP 145/109; TEMP 98.8; O2SAT 100
[2023-11-01] MEDS: CARVEDILOL 12.5 MG TABLET PO SCH ×3 (08:44→17:05)
[2023-11-01] MEDS: PANTOPRAZOLE 40 MG TABLET.DR PO SCH ×2 (08:45→10:21)
[2023-11-01] MEDS: CHOLECALCIFEROL 1,000 UNIT TABLET (VIT D3) PO SCH ×2 (08:45→10:21)
[2023-11-01] MEDS: NIFEDIPINE XL 60 MG TAB.ER.24 PO SCH ×3 (08:45→17:05)
[2023-11-01] MEDS: LOSARTAN POTASSIUM 50 MG TABLET PO SCH ×3 (08:45→17:04)
[2023-11-01] MEDS ORDERED: LIDOCAINE HCL/MPF 1% 30 ML VIAL IJ ONE (11:05)
[2023-11-01] MEDS ORDERED: HEPARIN SODIUM, PORCINE 1,000 UNIT/ML VIAL ONE (11:05)
[2023-11-01] MEDS ORDERED: IOHEXOL 50 ML IV ONE (11:05)
[2023-11-01] MEDS ORDERED: BACITRACIN OPHTH OINT 3.5 GM TUBE ONE (12:38)
[2023-11-01 16:28] VITALS: BP 140/102; TEMP 98.2; O2SAT 98
[2023-11-01] MEDS: ATORVASTATIN 40 MG TABLET PO SCH (17:04)
[2023-11-01 19:30] VITALS: BP 120/88; TEMP 98.3; O2SAT 100
[2023-11-01] MEDS: ANCEF 1 GM/50 ML D5W IV SCH ×2 (20:28)
[2023-11-02] MEDS: ANCEF 1 GM/50 ML D5W IV SCH ×2 (04:01)
[2023-11-02 06:30] LABS: BASOPHILS # (AUTO) 0.1 K/uL (0.0-0.2); BASOPHILS % (AUTO) 0.9 % (0.0-2.0); EOSINOPHILS # (AUTO) 0.4 K/uL (0.0-0.7); HEMATOCRIT 33 % (39-51); LYMPHOCYTES # (AUTO) 1.4 K/uL (0.8-4.8); LYMPHOCYTES % (AUTO) 15.7 % (20.0-44.0); MEAN CORPUSCULAR HEMOGLOBIN 32 PG (26.0-33.0); MEAN CORPUSCULAR HGB CONC 34 g/dl (31.0-36.0); MEAN CORPUSCULAR VOLUME 95 fL (80-96); MONOCYTES # (AUTO) 0.8 K/uL (0.1-1.30); MONOCYTES % (AUTO) 9.2 % (2.0-12.0); NEUTROPHILS # (AUTO) 6.2 K/uL (1.8-8.9); NEUTROPHILS % (AUTO) 69.2 % (43.0-81.0); PLATELET COUNT (AUTO) 174 K/uL (150-450); RED BLOOD CELL COUNT(AUTO) 3.45 MIL/uL (4.5-6.0); RED CELL DISTRIBUTION WIDTH 15.1 % (11.5-15.0)
[2023-11-02] MEDS: INSULIN REGULAR, HUMAN 100 UNIT/ML 3 ML VIAL SQ PRN ×2 (06:37→21:08)
[2023-11-02] MEDS: BLOOD SUGAR DIAGNOSTIC 1 EACH STRIP IN SCH ×4 (06:37→21:08)
[2023-11-02 06:57] LABS: CALCIUM, SERUM 9.3 mg/dL (8.5-10.1); MAGNESIUM 2.6 mg/dL (1.8-2.4); POTASSIUM 5.1 mmol/L (3.5-5.1)
[2023-11-02 07:14] LABS: CREATININE 15.4 mg/dL (0.6-1.3); PHOSPHORUS 8.9 mg/dL (2.5-4.9)
[2023-11-02 08:00] VITALS: BP 153/116; TEMP 98.6; O2SAT 99
[2023-11-02] MEDS: PANTOPRAZOLE 40 MG TABLET.DR PO SCH (08:38)
[2023-11-02] MEDS: SEVELAMER CARBONATE 800 MG TABLET PO SCH ×3 (08:38→17:29)
[2023-11-02] MEDS: LOSARTAN POTASSIUM 50 MG TABLET PO SCH ×2 (08:38→17:30)
[2023-11-02] MEDS: CHOLECALCIFEROL 1,000 UNIT TABLET (VIT D3) PO SCH (08:39)
[2023-11-02] MEDS: CARVEDILOL 12.5 MG TABLET PO SCH ×2 (08:39→17:31)
[2023-11-02] MEDS: NIFEDIPINE XL 60 MG TAB.ER.24 PO SCH ×2 (08:39→17:30)
[2023-11-02 15:59] VITALS: BP 114/90; TEMP 98; O2SAT 96
[2023-11-02] MEDS: ATORVASTATIN 40 MG TABLET PO SCH (17:30)
[2023-11-02 20:00] VITALS: BP 146/108; TEMP 98.1; O2SAT 96
[2023-11-03 05:59] LABS: BASOPHILS # (AUTO) 0.1 K/uL (0.0-0.2); BASOPHILS % (AUTO) 0.7 % (0.0-2.0); EOSINOPHILS # (AUTO) 0.4 K/uL (0.0-0.7); EOSINOPHILS % (AUTO) 4.5 % (0.0-6.0); HEMATOCRIT 30 % (39-51); HEMOGLOBIN 10.3 g/dL (13.5-17.5); LYMPHOCYTES # (AUTO) 1.4 K/uL (0.8-4.8); MEAN CORPUSCULAR HEMOGLOBIN 32 PG (26.0-33.0); MEAN CORPUSCULAR HGB CONC 35 g/dl (31.0-36.0); MEAN CORPUSCULAR VOLUME 93 fL (80-96); MONOCYTES # (AUTO) 0.7 K/uL (0.1-1.30); MONOCYTES % (AUTO) 8.2 % (2.0-12.0); NEUTROPHILS # (AUTO) 6.3 K/uL (1.8-8.9); NEUTROPHILS % (AUTO) 70.6 % (43.0-81.0); PLATELET COUNT (AUTO) 188 K/uL (150-450); RED BLOOD CELL COUNT(AUTO) 3.19 MIL/uL (4.5-6.0); RED CELL DISTRIBUTION WIDTH 15.4 % (11.5-15.0)
[2023-11-03] MEDS: BLOOD SUGAR DIAGNOSTIC 1 EACH STRIP IN SCH ×3 (06:35→16:58)
[2023-11-03] MEDS: INSULIN REGULAR, HUMAN 100 UNIT/ML 3 ML VIAL SQ PRN (06:35)
[2023-11-03 06:49] LABS: CALCIUM, SERUM 9.1 mg/dL (8.5-10.1); MAGNESIUM 2.3 mg/dL (1.8-2.4); POTASSIUM 5.2 mmol/L (3.5-5.1)
[2023-11-03 07:42] LABS: CREATININE 17.9 mg/dL (0.6-1.3)
[2023-11-03] MEDS: SEVELAMER CARBONATE 800 MG TABLET PO SCH ×3 (08:19→17:20)
[2023-11-03] MEDS: PANTOPRAZOLE 40 MG TABLET.DR PO SCH (08:20)
[2023-11-03] MEDS: VIT B CMPLX 3/FA/VIT C/BIOTIN 1 TAB TABLET PO SCH (08:20)
[2023-11-03] MEDS: LOSARTAN POTASSIUM 50 MG TABLET PO SCH ×2 (08:20→17:21)
[2023-11-03] MEDS: CARVEDILOL 12.5 MG TABLET PO SCH ×2 (08:20→17:20)
[2023-11-03] MEDS: CHOLECALCIFEROL 1,000 UNIT TABLET (VIT D3) PO SCH (08:20)
[2023-11-03] MEDS: NIFEDIPINE XL 60 MG TAB.ER.24 PO SCH ×2 (08:21→17:21)
[2023-11-03 16:00] VITALS: BP 134/95; TEMP 97.7; O2SAT 100
[2023-11-03] MEDS: ATORVASTATIN 40 MG TABLET PO SCH (17:20)
[2023-11-03 19:00] VITALS: BP 140/100; TEMP 98.1; O2SAT 100
[2023-11-04] MEDS: BLOOD SUGAR DIAGNOSTIC 1 EACH STRIP IN SCH ×5 (00:30→23:31)
[2023-11-04 08:00] VITALS: BP 138/100; TEMP 98; O2SAT 98
[2023-11-04] MEDS: CHOLECALCIFEROL 1,000 UNIT TABLET (VIT D3) PO SCH (09:31)
[2023-11-04] MEDS: SEVELAMER CARBONATE 800 MG TABLET PO SCH ×3 (09:31→17:47)
[2023-11-04] MEDS: VIT B CMPLX 3/FA/VIT C/BIOTIN 1 TAB TABLET PO SCH (09:31)
[2023-11-04] MEDS: PANTOPRAZOLE 40 MG TABLET.DR PO SCH (09:31)
[2023-11-04] MEDS: LOSARTAN POTASSIUM 50 MG TABLET PO SCH ×2 (09:31→17:49)
[2023-11-04] MEDS: NIFEDIPINE XL 60 MG TAB.ER.24 PO SCH ×2 (09:32→17:49)
[2023-11-04] MEDS: CARVEDILOL 12.5 MG TABLET PO SCH ×2 (09:32→17:49)
[2023-11-04 12:36] LABS: CALCIUM, SERUM 9.3 mg/dL (8.5-10.1); POTASSIUM 4.1 mmol/L (3.5-5.1)
[2023-11-04 12:38] LABS: CREATININE 14.4 mg/dL (0.6-1.3)
[2023-11-04 16:00] VITALS: BP 132/99; TEMP 98.4; O2SAT 99
[2023-11-04] MEDS: ATORVASTATIN 40 MG TABLET PO SCH (17:48)
[2023-11-04 20:00] VITALS: BP 142/100; TEMP 99; O2SAT 98
[2023-11-05] MEDS: BLOOD SUGAR DIAGNOSTIC 1 EACH STRIP IN SCH ×2 (06:45→11:40)
[2023-11-05 07:31] LABS: BASOPHILS # (AUTO) 0.1 K/uL (0.0-0.2); BASOPHILS % (AUTO) 0.9 % (0.0-2.0); EOSINOPHILS # (AUTO) 0.2 K/uL (0.0-0.7); HEMATOCRIT 29 % (39-51); HEMOGLOBIN 10.1 g/dL (13.5-17.5); LYMPHOCYTES # (AUTO) 1.3 K/uL (0.8-4.8); LYMPHOCYTES % (AUTO) 18.2 % (20.0-44.0); MEAN CORPUSCULAR HEMOGLOBIN 32 PG (26.0-33.0); MEAN CORPUSCULAR HGB CONC 34 g/dl (31.0-36.0); MEAN CORPUSCULAR VOLUME 94 fL (80-96); MONOCYTES # (AUTO) 0.6 K/uL (0.1-1.30); MONOCYTES % (AUTO) 8.9 % (2.0-12.0); PLATELET COUNT (AUTO) 200 K/uL (150-450); RED BLOOD CELL COUNT(AUTO) 3.15 MIL/uL (4.5-6.0); RED CELL DISTRIBUTION WIDTH 15.1 % (11.5-15.0); WHITE BLOOD COUNT (AUTO) 7.3 K/uL (4.3-11.0)
[2023-11-05 07:52] LABS: CALCIUM, SERUM 9.3 mg/dL (8.5-10.1); MAGNESIUM 2.2 mg/dL (1.8-2.4); POTASSIUM 4.8 mmol/L (3.5-5.1)
[2023-11-05 08:00] VITALS: BP 145/93; TEMP 97.5; O2SAT 99
[2023-11-05 08:05] LABS: CREATININE 16.1 mg/dL (0.6-1.3)
[2023-11-05] MEDS: CHOLECALCIFEROL 1,000 UNIT TABLET (VIT D3) PO SCH (08:55)
[2023-11-05] MEDS: SEVELAMER CARBONATE 800 MG TABLET PO SCH (08:56)
[2023-11-05] MEDS: PANTOPRAZOLE 40 MG TABLET.DR PO SCH (08:56)
[2023-11-05] MEDS: CARVEDILOL 12.5 MG TABLET PO SCH (08:56)
[2023-11-05] MEDS: LOSARTAN POTASSIUM 50 MG TABLET PO SCH (08:56)
[2023-11-05] MEDS: VIT B CMPLX 3/FA/VIT C/BIOTIN 1 TAB TABLET PO SCH (08:56)
[2023-11-05] MEDS: NIFEDIPINE XL 60 MG TAB.ER.24 PO SCH (08:57)
[2023-11-05] MEDS ORDERED: SEVELAMER CARBONATE 800 MG TABLET PO SCH (13:00)
[2023-11-05 16:00] VITALS: BP 114/87; TEMP 100; O2SAT 100
[2023-11-06 08:06] LABS: HEPATITIS B SURFACE AB Reactive (.)
== END 2023-11-05 17:00 | disposition home or self-care (01) | DRG 466 ==
LOC: ER 10:54 → MED 13:55
PROVIDERS: ADMIT Nurse Practitioner Acute Care
PROC: 05PYX3Z Removal of Infusion Device from Upper Vein, External Approach (ICD-10-PCS; principal; 2023-10-29)
PROC: 05HN33Z Insertion of Infusion Device into Left Internal Jugular Vein, Percutaneous Approach (ICD-10-PCS; 2023-10-29)
PROC: B544ZZA Ultrasonography of Left Jugular Veins, Guidance (ICD-10-PCS; 2023-10-29)
PROC: 5A1D70Z Performance of Urinary Filtration, Intermittent, Less than 6 Hours Per Day (ICD-10-PCS; 2023-10-29)
PROC: 0J2SXYZ Change Other Device in Head and Neck Subcutaneous Tissue and Fascia, External Approach (ICD-10-PCS; 2023-11-01)
PROC: 05H533Z Insertion of Infusion Device into Right Subclavian Vein, Percutaneous Approach (ICD-10-PCS; 2023-11-02)
PROC: B546ZZA Ultrasonography of Right Subclavian Vein, Guidance (ICD-10-PCS; 2023-11-02)
DX: T82.41XA Breakdown (mechanical) of vascular dialysis catheter, initial encounter (principal); N18.6 End stage renal disease; I13.2 Hypertensive heart and chronic kidney disease with heart failure and with stage 5 chronic kidney disease, or end stage renal disease; E11.22 Type 2 diabetes mellitus with diabetic chronic kidney disease; D63.1 Anemia in chronic kidney disease; E87.1 Hypo-osmolality and hyponatremia; E83.39 Other disorders of phosphorus metabolism; Y71.2 Prosthetic and other implants, materials and accessory cardiovascular devices associated with adverse incidents; I50.9 Heart failure, unspecified; J98.11 Atelectasis; Z68.32 Body mass index [BMI] 32.0-32.9, adult; Z79.84 Long term (current) use of oral hypoglycemic drugs; Z79.899 Other long term (current) drug therapy; Z99.2 Dependence on renal dialysis; N25.0 Renal osteodystrophy; Y84.8 Other medical procedures as the cause of abnormal reaction of the patient, or of later complication, without mention of misadventure at the time of the procedure; Y92.009 Unspecified place in unspecified non-institutional (private) residence as the place of occurrence of the external cause
CPT/HCPCS: 36410; 36415; 71045-TC; 80048-TC; 80053-TC; 80061-TC; 82962-TC; 83735-TC; 84100-TC; 85025-TC; 85730-TC; 86706; 87081-TC; 87340; 90935-TC; A4223; C1750; C1757; C1769; C1894; C9113; G0378; J0690; J1644; J1815; J2250; J2704; J2997; J3010; J3490; J7030; J7050; J7060; Q9967